=== PATIENT | male | born 1935 | race Caucasian/White ===

== ENCOUNTER 2017-05-05 06:54 | Inpatient (IN) ==
[2017-04-29 13:44] LABS: Appearance,Urine CLEAR; Bilirubin,Urine NEG (NEG); Color,Urine YELLOW; Glucose,Urine (UA) NEGATIVE (NEG); Leukocyte Esterase,Urine NEG /uL (NEG); Nitrate,Urine NEG (NEG); Protein,Urine NEG (NEG); Urine Blood NEG mg/dL (<0.03); Urobilinogen,Urine NEG (NEG)
[2017-04-29 14:01] LABS: Basophils # (Auto) 0 K/mcL (0.0-0.3); Basophils % (Auto) 0.3 % (0.0-2.0); Eosinophils # (Auto) 0.1 K/mcL (0.0-0.7); Eosinophils % (Auto) 1.6 % (0.0-7.0); Granulocytes % (Auto) 68.7 % (38.0-78.0); Lymphocytes # (Auto) 1.9 K/mcL (1.5-4.8); Lymphocytes % (Auto) 22.1 % (15.5-49.0); Mean Cell Volume 93.1 fL (80.0-100.0); Mean Corpuscular HGB Conc 33.5 g/dL (31.0-36.0); Mean Corpuscular Hemoglobin 31.2 pg (26.0-34.0); Monocytes # (Auto) 0.6 K/mcL (0.1-0.9); Monocytes % (Auto) 7.3 % (1.0-12.0); Platelet Count 220 K/mcL (140-440); RBC 4.83 M/mcL (4.50-5.90); Red Cell Distribution Width 14.5 % (11.5-14.5)
[2017-04-29 15:00] LABS: Blood Urea Nitrogen 27 mg/dl (8-23)
[2017-05-05] MEDS ORDERED: KETOROLAC 30 MG, ROPIVACAINE HCL/PF 49.5 ML, EPINEPHrine 0.5 MG, 0.9 % SODIUM CHLORIDE ... IJ SCH (07:15)
[2017-05-05] MEDS ORDERED: oxyCODONE 10 MG TAB.ER.12H PO SCH (07:15)
[2017-05-05] MEDS ORDERED: PREGABALIN 75 MG CAPSULE PO SCH (07:15)
[2017-05-05] MEDS ORDERED: CELECOXIB 200 MG CAPSULE PO SCH (07:15)
[2017-05-05] MEDS ORDERED: ceFAZolin 1 GM VIAL IV SCH (07:30)
[2017-05-05] MEDS ORDERED: ROPIVACAINE HCL/PF 30 ML VIAL IJ ONE (09:30)
[2017-05-05] MEDS ORDERED: GLYCOPYRROLATE 0.2 MG/ML VIAL IV ONE (09:30)
[2017-05-05] MEDS ORDERED: KETAMINE 100 MG/ML ML IV ONE (09:30)
[2017-05-05] MEDS ORDERED: MIDAZOLAM 5 MG/5 ML VIAL IV ONE (09:30)
[2017-05-05] MEDS ORDERED: PHENYLEPHRINE 10 MG/ML VIAL IV ONE (09:30)
[2017-05-05] MEDS ORDERED: DEXAMETHASONE 10 MG/ML VIAL IV ONE (09:30)
[2017-05-05] MEDS ORDERED: ONDANSETRON 4 MG/2 ML VIAL IV ONE (09:30)
[2017-05-05] MEDS ORDERED: TRANEXAMIC ACID 1,000 MG/10 ML VIAL IV ONE ×2 (09:30→11:36)
[2017-05-05] MEDS ORDERED: LIDOCAINE HCL/PF 100 MG/5 ML SYRINGE IV ONE (09:30)
[2017-05-05] MEDS ORDERED: PROPOFOL 200 MG/20 ML VIAL IV ONE (09:30)
[2017-05-05] MEDS ORDERED: BENZOCAINE/MENTHOL 1 LOZENGE PO PRN ×2 (11:27→11:36)
[2017-05-05] MEDS ORDERED: ePHEDrine 50 MG/ML AMPUL IV PRN (11:27)
[2017-05-05] MEDS ORDERED: ONDANSETRON 4 MG/2 ML VIAL IV PRN ×2 (11:27→11:36)
[2017-05-05] MEDS ORDERED: fentaNYL 100 MCG/2 ML VIAL IV PRN (11:27)
[2017-05-05] MEDS ORDERED: METOPROLOL TARTRATE 5 MG/5 ML VIAL IV PRN (11:27)
[2017-05-05] MEDS ORDERED: MEPERIDINE 25 MG/ML SYRINGE IV PRN (11:27)
[2017-05-05] MEDS ORDERED: METHOCARBAMOL 1,000 MG/10 ML VIAL IV PRN (11:27)
[2017-05-05] MEDS ORDERED: PROMETHAZINE 25 MG/ML VIAL IV PRN (11:27)
[2017-05-05] MEDS ORDERED: IPRATROPIUM/ALBUTEROL 3 ML AMPUL.NEB NEB PRN (11:27)
[2017-05-05] MEDS ORDERED: LACTATED RINGERS 1,000 ML IV SCH (11:30)
--- NOTE | 2017-05-05 11:35 | Brief Operative Note ---
Date of procedure: 05/05/17 Pre-op diagnosis: Left knee DJD Post-op diagnosis: same Procedure: Left total knee arthroplasty Surekha 5 CR femur, 6 tibia, 9mm insert, 36 patella Grafts/Implants: Yes (Surekha) Anesthesia: spinal, GLMA Findings: arthritis Complications: none Surgeon: Maulik Mcleod Power Crane Operator: Carloz Hagan Estimated blood loss (cc): 30 Specimens Removed/Pathology: none sent Condition: stable Disposition: PACU
[2017-05-05] MEDS ORDERED: HYDROmorphone 2 MG/ML SYRINGE IV PRN (11:36)
[2017-05-05] MEDS ORDERED: FLEETS ADULT ENEMA PR PRN (11:36)
[2017-05-05] MEDS ORDERED: BISACODYL 10 MG SUPP.RECT PR PRN (11:36)
[2017-05-05] MEDS ORDERED: POLYETHYLENE GLYCOL 3350 17 GM PACKET PO PRN (11:36)
[2017-05-05] MEDS ORDERED: DEXTROSE 50% 50 ML VIAL IV PRN (11:36)
[2017-05-05] MEDS ORDERED: MAGNESIUM HYDROXIDE 30 ML ORAL.SUSP PO PRN (11:36)
[2017-05-05] MEDS: 0.9 % SODIUM CHLORIDE 1,000 ML IV SCH ×2 (12:41→21:40)
--- NOTE | 2017-05-05 12:42 | XRay Report ---
CLINICAL INFORMATION: Reason for Exam:Post-op total knee COMPARISON: None. FINDINGS: Total knee prostheses anatomically aligned. No osseous normality. There are small ossifications in the quadriceps tendon superior to the patella - similar to previous study IMPRESSION: Knee prostheses is anatomically aligned Interpreted and Authenticated by: Hermelindo Perez 05/05/17
--- NOTE | 2017-05-05 14:07 | Operative Note ---
DATE OF OPERATION: 05/05/2017 PREOPERATIVE DIAGNOSIS: Left knee severe osteoarthritis. POSTOPERATIVE DIAGNOSIS: Left knee severe osteoarthritis. PROCEDURE PERFORMED: 1. Left robotic-assisted total knee arthroplasty placing a Surekha triathlon cruciate retaining size 5 femoral component, a size 6 tibial baseplate, 9 mm tibial insert with a 36 mm patellar button. 2. 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 SURGEON: Maulik Mcleod MD. RECORD CENTER COORDINATOR: Ann Damico PA-C. ANESTHESIA: Spinal plus general. DRAINS: Medium Hemovac. SPECIMENS: Bone cuts and gouty tophi, which were discarded. BLOOD LOSS: 30 mL. COMPLICATIONS: None. POSTOPERATIVE CONDITION: Stable. INDICATIONS FOR SURGERY: This is an 81-year-old male who has had longstanding bilateral knee pain. Radiographs showed severe [id number] osteoarthritis. FINDINGS AT SURGERY: There was a large gouty tophi off of the anterior surface of the patella. There was severe multi-compartment arthrosis. Post implantation showed good limb alignment, patellar tracking, and joint stability. PROCEDURE IN DETAIL: The patient had been seen preoperatively. Informed consent had been obtained after discussion of risks and benefits of surgery. Risks including, but not limited to, bleeding, possibly requiring transfusion; infection, possibly requiring implant removal and prolonged IV antibiotics; injury to nerves, blood vessels, and other surrounding structures; anesthetic risks; incomplete or no resolution of symptoms; DVT and pulmonary embolus risks; swelling, stiffness, pain, clunking; possibility of needing further surgery. He understood these risks and wished to proceed. Correct operative site was marked in preoperative holding and patient received spinal anesthesia. He was then taken to the operating room and LMA general given. The left lower extremity was carefully prepped and draped in normal sterile fashion, and a time-out was performed verifying patient name, operative site, and plan. Ioban was used over skin surface, and an Esmarch was used to exsanguinate the extremity and tourniquet was inflated. A midline incision was made with a scalpel through skin and subcutaneous tissue and then noted the very large gout tophi off the anterior patella. A scalpel was used to excise several layers of gout deposits until down onto the patella. We then irrigated with Irrisept and then made a medial parapatellar arthrotomy. Subperiosteal exposure was done of the anterior medial tibia, as well as the distal anterior cortex of the femur. Anterior horns of the menisci excised and the ACL transected. Stab incisions were made, two proximal and two distal, and bicortical pins were placed, two proximal and two distal, and the arrays were positioned. We then placed the checkpoints on the femur and tibia. Hip center of rotation was taken as well as medial and lateral malleoli and checkpoints double checked. We then used the blue probe to do our data point entry, and once completed osteophytes were removed. We then checked our flexion gap and extension gap which was adjusted to create 17 mm for both sides in flexion and extension. We then put this into the robot and made our bone cut, carefully protecting collateral ligaments. Once the bone cuts were completed, we identified our tibial rotation and pinned this into place. We went ahead and did our boss reamer and keel punch. We then elevated the femur and removed posterior osteophytes with a curved osteotome and curet, and then the femoral trial was impacted. This was pinned into place and peg holes drilled. A 9 trial insert was placed, and the knee was taken into extension. The patella was measured initially as 20 mm thick. We went ahead and did a freehand cut, which left us with 13 mm which we did not want to thin the patellar further. We medialized this maximally with a 36 and drilled our holes. The trial was placed, and a lateral facetectomy was performed and performing this essentially created a lateral retinacular release. We then checked our patellar tracking, which was very good with no tilt or subluxation, so we went ahead and removed trial implants. Definitive implants were opened while we irrigated Irrisept. After a minute we pulse lavaged copiously with saline, and then we used a CO2 gun to clean the cancellous surfaces and then cemented the tibia. Excess cement removed and then the femur was impacted and excess cement removed. A 9 trial insert was placed and the knee was taken into full extension. Patellar button was cemented. While cement hardened, we filled the joint with Irrisept and then injected pain cocktail into the pericapsular and subcutaneous tissues. Once cement had fully hardened, we pulse lavaged copiously with saline and then flexed the knee up. We removed the trial insert, injected the remainder of the pain cocktail in the posteromedial capsule. We irrigated some Irrisept and then opened and impacted a 9 tibial insert. This was carefully verified to be fully seated. The knee was then placed in about 45 degrees of flexion. Final saline was irrigated and then #2 FiberWire was used in a [id number] around the superior quadrant of the patella, #1 Vicryl for the inferior quadrant. Running #1 Vicryl was used for the patellar tendon and quad tendon. Prior to closure, we did place a drain out as his skin was thin, and there was opening from the joint lateral to the patella. We then irrigated some more Irrisept. After waiting a minute, 2-0 Monocryl was used for subcutaneous and lyudmila for skin. [place] were used for the stab incisions proximal and distal, and then Xeroform, sterile dressing were applied. The tourniquet was released. The patient was awakened, extubated, and transferred to recovery in stable condition. [email or web address] Job ID: [id number] Doc ID: [id number] Maulik Mcledo MD
[2017-05-05] MEDS: KETOROLAC 15 MG/ML VIAL IV SCH ×3 (14:53→23:59)
[2017-05-05] MEDS: 0.9 % SODIUM CHLORIDE 10 ML SYRINGE IV SCH (14:54)
[2017-05-05] MEDS: CARVEDILOL 12.5 MG TABLET PO SCH (16:27)
[2017-05-05] MEDS: ceFAZolin 1 GM VIAL IV SCH (16:27)
[2017-05-05] MEDS: INSULIN LISPRO 1 UNIT/0.01 ML UNIT SQ SCH ×2 (17:22→21:36)
[2017-05-05] MEDS ORDERED: ASPIRIN 325 MG ENTERIC COATED TABLET PO SCH (21:00)
[2017-05-05] MEDS: SENNOSIDES 1 TABLET PO SCH (21:35)
[2017-05-05] MEDS: DOCUSATE SODIUM 100 MG CAPSULE PO SCH (21:36)
[2017-05-05] MEDS: HYDROcodone/APAP 10/325MG TABLET PO PRN (21:36)
[2017-05-05] MEDS: SIMVASTATIN 40 MG TABLET PO SCH (21:36)
[2017-05-05] MEDS: DABIGATRAN ETEXILATE MESYLATE 75 MG CAPSULE PO SCH (21:43)
[2017-05-06] MEDS: 0.9 % SODIUM CHLORIDE 10 ML SYRINGE IV SCH ×4 (01:14→23:47)
[2017-05-06] MEDS: ceFAZolin 1 GM VIAL IV SCH (02:39)
[2017-05-06] MEDS: 0.9 % SODIUM CHLORIDE 1,000 ML IV SCH ×3 (05:01→21:36)
[2017-05-06] MEDS: KETOROLAC 15 MG/ML VIAL IV SCH ×4 (05:24→23:47)
[2017-05-06] MEDS: INSULIN LISPRO 1 UNIT/0.01 ML UNIT SQ SCH ×4 (07:21→21:35)
[2017-05-06] MEDS: GLIMEPIRIDE 2 MG TABLET PO SCH (07:21)
[2017-05-06] MEDS ORDERED: MAG HYDROX/AL HYDROX/SIMETH 30 ML ORAL.SUSP PO PRN (07:50)
--- NOTE | 2017-05-06 08:01 | Discharge Summary ---
Ortho Discharge - TKA - Patient Instructions Diet: Regular Diet Activity: activity as tolerated, weight bearing as tolerated Total Knee Protocol: For Total Knee: Start ROM DAVEY with stationary bike or rocking chair. Work on gaining full extension of knee. Posterior dislocation precautions provided. Hip abductor strengthening and gait training instructions provided. Apply Cryocuff as instructed. Dressing Care: Aquacel Ag - leave on for 5 days Patient Education: Total Knee Replacement (DC) - Follow Up Plan Follow Up Appointments: Carloz Hagan PA-C [[facility] Agent] - 05/20/17 8:40 am Disposition: Home, Self-Care Prognosis: Good Rehab Potential: Good - Orders For Discharge Additional Discharge Orders: Physical Therapy at Discharge - TKA Location: Determined By Patient Toilet Riser Discharge Order Location: Determined By Patient Walker Location: Determined By Patient
[2017-05-06] MEDS: SPIRONOLACTONE 25 MG TABLET PO SCH (08:07)
[2017-05-06] MEDS: FUROSEMIDE 40 MG TABLET PO SCH (08:08)
[2017-05-06] MEDS: POTASSIUM CHLORIDE 10 MEQ TABLET PO SCH (08:08)
[2017-05-06] MEDS: ALLOPURINOL 300 MG TABLET PO SCH (08:08)
[2017-05-06] MEDS: CARVEDILOL 12.5 MG TABLET PO SCH ×2 (08:09→17:32)
[2017-05-06] MEDS: DOCUSATE SODIUM 100 MG CAPSULE PO SCH ×2 (08:09→21:35)
[2017-05-06] MEDS: DABIGATRAN ETEXILATE MESYLATE 75 MG CAPSULE PO SCH ×2 (08:13→21:35)
--- NOTE | 2017-05-06 21:07 | Orthopedic Progress Note ---
Subjective Patient information: Note initiated : 05/06/17 at 9:05 pm Service Date, if different from initiated Date: [] Patient: Cooper Santana 81 y/o M admitted on 05/05/17 for Left Total Knee Arthroplasty with Randolph. Chief Complaint: [] Principal diagnosis: s/p L total knee arthroplasty Interval history: pain is tolerable Objective Vital signs: Vital Signs Temp Pulse Resp BP Pulse Ox 05/06/17 15:17 98 F 20 130/79 95 05/06/17 12:21 97.6 F 16 117/54 94 05/06/17 11:54 92 05/06/17 07:34 97.3 F 18 149/70 05/06/17 03:03 97.6 F 74 24 H 139/88 97 05/06/17 03:00 74 05/05/17 23:48 98.0 F 92 H 24 H 133/79 96 Intake and Output 05/06/17 05/06/17 05/06/17 05:59 13:59 21:59 Intake Total 400 / 400 3400 / 3400 240 / 240 Output Total 935 / 935 325 / 325 700 / 700 Balance -535 / -535 3075 / 3075 -460 / -460 Intake: IV 1000 / 1000 Sodium Chloride 0.9% 1, 1000 / 1000 000 ml @ 125 mls/hr IV . Q8H BILLY Rx#:[id number] Oral 400 / 400 2400 / 2400 240 / 240 Output: Drainage 85 / 85 0 / 0 Left Knee 85 / 85 0 / 0 Urine Catheter Amount 475 / 475 Void Amount 375 / 375 325 / 325 700 / 700 Other: Meal Lunch Dinner Percent of Meal Consumed 100% 100% Feeding Ability Independent Independent Intake & Output: Intake & Output 05/06/17 05/06/17 05/06/17 05:59 13:59 21:59 Intake Total 400 / 400 3400 / 3400 240 / 240 Output Total 935 / 935 325 / 325 700 / 700 Balance -535 / -535 3075 / 3075 -460 / -460 Intake: IV 1000 / 1000 Sodium Chloride 0.9% 1, 1000 / 1000 000 ml @ 125 mls/hr IV . Q8H BILLY Rx#:[id number] Oral 400 / 400 2400 / 2400 240 / 240 Output: Drainage 85 / 85 0 / 0 Left Knee 85 / 85 0 / 0 Urine Catheter Amount 475 / 475 Void Amount 375 / 375 325 / 325 700 / 700 Other: Meal Lunch Dinner Percent of Meal Consumed 100% 100% Feeding Ability Independent Independent Dressing: Yes clean, Yes dry, Yes intact Neurological exam IM: Yes alert, Yes oriented X3 - Labs CBC & BMP: 05/06/17 04:07 04/29/17 11:37 Labs: Orthopedic Labs 04/29/17 11:37 PT 17.8 H INR 1.4 H 05/06/17 04/29/17 04:07 11:37 Hgb 12.4 L 15.1 Hct 35.9 L 44.9 Assessment and Plan (1) S/P total knee arthroplasty POD#1 s/p L total knee arthroplasty-stable -PT -pain control Status: Acute Qualifiers: Laterality: left Qualified Code(s): Z96.652 - Presence of left artificial knee joint
[2017-05-06] MEDS: SENNOSIDES 1 TABLET PO SCH (21:35)
[2017-05-06] MEDS: SIMVASTATIN 40 MG TABLET PO SCH (21:38)
[2017-05-07] MEDS: HYDROcodone/APAP 10/325MG TABLET PO PRN ×2 (04:27→10:29)
[2017-05-07] MEDS: 0.9 % SODIUM CHLORIDE 1,000 ML IV SCH (05:35)
[2017-05-07] MEDS: KETOROLAC 15 MG/ML VIAL IV SCH (05:53)
[2017-05-07] MEDS: 0.9 % SODIUM CHLORIDE 10 ML SYRINGE IV SCH (05:55)
[2017-05-07] MEDS: CARVEDILOL 12.5 MG TABLET PO SCH (07:52)
[2017-05-07] MEDS: POTASSIUM CHLORIDE 10 MEQ TABLET PO SCH (07:52)
[2017-05-07] MEDS: INSULIN LISPRO 1 UNIT/0.01 ML UNIT SQ SCH (07:52)
[2017-05-07] MEDS: GLIMEPIRIDE 2 MG TABLET PO SCH (08:01)
[2017-05-07] MEDS: DOCUSATE SODIUM 100 MG CAPSULE PO SCH ×2 (08:29→09:08)
[2017-05-07] MEDS: ALLOPURINOL 300 MG TABLET PO SCH (08:29)
[2017-05-07] MEDS: FUROSEMIDE 40 MG TABLET PO SCH ×2 (08:29→09:08)
[2017-05-07] MEDS: SPIRONOLACTONE 25 MG TABLET PO SCH ×2 (08:29→09:08)
[2017-05-07] MEDS: DABIGATRAN ETEXILATE MESYLATE 75 MG CAPSULE PO SCH (09:10)
== END 2017-05-07 10:40 | disposition home or self-care (01) | DRG 470 ==
LOC: MEDSUR 06:54
PROVIDERS: ADMIT Orthopaedic Surgery; ATTEND Orthopaedic Surgery